=== PATIENT | female | born 1990 | race Caucasian/White ===

== ENCOUNTER 2018-09-11 09:37 | Emergency (ER) | payer OTHER ==
--- NOTE | 2018-09-11 09:55 | EDPHY ---
H & P Smoking Status: Never smoked Time Seen by Provider: 09/11/18 09:47 HPI/ROS: Procedure: Procedural sedation. Indication: Left elbow dislocation reduction. A pre-sedation evaluation was completed on the patient just prior to the procedure. Patient is an appropriate candidate for procedural sedation with ASA class 1E. Mallampati class I. Patient assessed as 89. The risks of the sedation were discussed including but not limited to dysrhythmia, need for airway intervention or general anesthesia, disability, ; and verbal consent obtained. A timeout was observed and patient's identity confirmed. The patient was sedated with 50 mg of IV ketamine slow push. 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 There were no complications and no significant hypoxemia. I remained at the bedside for the sedation. The total time I spent in the procedural sedation was 24 min. (Anjel Soto) Constitutional: Initial Vital Signs Temperature (C) 36.7 C 09/11/18 09:41 Heart Rate 71 09/11/18 09:41 Respiratory Rate 16 09/11/18 09:41 Blood Pressure 131/63 H 09/11/18 09:41 O2 Sat (%) 99 09/11/18 09:41 O2 Delivery Mode [Post Non-Rebreather Mask Procedure 2nd] O2 Delivery Mode [Post Non-Rebreather Mask Procedure 1st] O2 Delivery Mode [Procedural Non-Rebreather Mask 1st] O2 Delivery Mode [.Immediate Non-Rebreather Mask Pre-Procedure] O2 Delivery Mode Room Air O2 (L/minute) [Post Procedure 15 2nd] O2 (L/minute) [Post Procedure 15 1st] O2 (L/minute) [Procedural 1st] 15 O2 (L/minute) [.Immediate Pre- 15 Procedure] O2 (L/minute) 2 Allergies/Adverse Reactions: No Known Allergies Allergy (Unverified 09/11/18 09:40) Home Medications: Medication Instructions Recorded Lexapro 09/11/18 Microgestin 21 1.5-30 Tab 09/11/18 oxyCODONE/APAP 5/325 [Percocet 1 - 2 tab PO Q4H PRN #10 tab 09/11/18 5/325 (*)] Medical Decision Making Procedures: Procedure: Dislocation reduction. The posterior dislocation of the left elbow was reduced using counter traction technique without complications. Post reduction the patient's neurovascular exam is normal. Post reduction x-ray demonstrates reduction of the joint to the anatomic position. The procedure was performed by myself. Procedure: Splint placement. A left long-arm posterior splint and sling were applied. After application of the splint I returned and re-examined the patient. The splint was adequately immobilizing the joint and distal to the splint the patient's circulation and sensation was intact. (No Harper) ED Course/Re-evaluation: Patient was initially given IV fentanyl 50 mcg and IV Ativan 1 mg with inability to tolerate reduction at bedside. Patient was moved to trauma 1. For conscious sedation under Dr. Soto. Patient was reduced using counter traction and placed in a long-arm posterior splint and sling with orthopedic follow-up. Patient was given prescription for Percocet No signs of neurovascular compromise/tenting of skin/compartment syndrome/ extremities and joints examined above and below area of concern and are neurovascularly intact. This patient was seen under the supervision of my secondary supervising physician. I evaluated care for this patient with attending. Discussed this patient with Dr. Soto who did not see the patient. (No Harper) Differential Diagnosis: Differential diagnosis includes but is not limited to dislocation, fracture. ( No Harper) - Data Points Medications Given: Discontinued Medications Fentanyl (Sublimaze) 50 mcg IVP EDNOW ONE Stop: 09/11/18 10:24 Last Admin: 09/11/18 10:29 Dose: 50 mcg Sodium Chloride (Ns) 1,000 mls @ 0 mls/hr IV ONCE ONE; Wide Open PRN Reason: Protocol Stop: 09/11/18 10:43 Last Admin: 09/11/18 11:12 Dose: 1,000 mls Ketamine HCl (Ketamine) 100 mg IVP EDNOW ONE Stop: 09/11/18 10:43 Last Admin: 09/11/18 11:57 Dose: 100 mg Lorazepam (Ativan Injection) 1 mg IVP EDNOW ONE Stop: 09/11/18 10:39 Last Admin: 09/11/18 10:38 Dose: 1 mg Lorazepam (Ativan Injection) 1 mg IVP EDNOW ONE Stop: 09/11/18 10:41 Last Admin: 09/11/18 10:40 Dose: 1 mg Ondansetron HCl (Zofran) 4 mg IVP EDNOW ONE Stop: 09/11/18 10:25 Last Admin: 09/11/18 10:29 Dose: 4 mg Departure - Departure Disposition: Home, Routine, Self-Care Clinical Impression: Injury of left elbow, Dislocation of left elbow Condition: Good Instructions: Oxycodone/Acetaminophen (By mouth), Elbow Dislocation (ED), How to Use a Sling (ED), Splint Care (ED) Additional Instructions: Keep the splint dry and in place until seen by Orthopedics. Wear sling as needed for comfort while out of bed. Take Tylenol 650 mg every 4 hours and/or Ibuprofen 600 mg every 8 hours with food as needed for pain. Use Percocet every 6 hours as needed for severe/break through pain. Do not use Tylenol and Percocet concomitantly. Apply ice for 30 minutes at a time; 2-3 times per day for the next 1-2 days. Follow up with Orthopedics in 3-5 days at which time they will evaluate and recommend with you if conservative management versus further imaging is indicated. Referrals: Sepideh Harris MD [Primary Care Provider] - As per Instructions Kirk Berrios MD [Medical Doctor] - As per Instructions Stand Alone Forms: Work Excuse Prescriptions: oxyCODONE/APAP 5/325 [Percocet 5/325 (*)] 1 - 2 tab PO Q4H PRN #10 tab PRN Reason: Pain, Severe
[2018-09-11] MEDS ORDERED: fentaNYL 100 MCG/2 ML INJ IVP ONE (10:23)
[2018-09-11] MEDS ORDERED: ONDANSETRON 4 MG/2 ML VIAL IVP ONE (10:24)
[2018-09-11] MEDS ORDERED: LORazepam 2 MG/ML INJ ONE (10:35)
[2018-09-11] MEDS ORDERED: LORazepam 2 MG/ML INJ IVP ONE ×2 (10:38→10:40)
[2018-09-11] MEDS ORDERED: KETAMINE 200 MG/20 ML VIAL IVP ONE (10:42)
[2018-09-11] MEDS ORDERED: NS 1,000 ML IV ONE (10:42)
[2018-09-11 13:01] VITALS: BP 126/86
== END 2018-09-11 13:01 | disposition home or self-care (01) ==
PROC: 0RSMXZZ Reposition Left Elbow Joint, External Approach (ICD-10-PCS; principal; 2018-09-11)
DX: S53.025A Posterior dislocation of left radial head, initial encounter (principal); E86.9 Volume depletion, unspecified; X58.XXXA Exposure to other specified factors, initial encounter
CPT/HCPCS: 96374; A4565; J2060; J2405; J3010